=== PATIENT | male | born 1965 | race Caucasian/White ===

== ENCOUNTER 2024-10-02 06:22 | Day surgery (SDC) | payer BC, SELFPAY | END 2024-10-02 09:08 | disposition home or self-care (01) | LOC: GI 06:22 | PROVIDERS: ATTENDING PHYSICIAN Internal Medicine Gastroenterology | DX: Z12.11 Encounter for screening for malignant neoplasm of colon (principal); Z86.0101 Personal history of adenomatous and serrated colon polyps; K63.5 Polyp of colon | CPT/HCPCS: 45385; 45380; 88305 ==